=== PATIENT | female | born 1965 | race Caucasian/White ===

== ENCOUNTER → 2024-05-26 12:53 | Outpatient (REF) | payer BC, SELFPAY | LOC: HWRAD 12:53 | PROVIDERS: ATTENDING PHYSICIAN Obstetrics & Gynecology; FAMILY PHYSICIAN Family Medicine | DX: R10.2 Pelvic and perineal pain (principal) | CPT/HCPCS: 76830; 76856 ==

== ENCOUNTER → 2024-09-01 12:36 | Outpatient (REF) | payer BC, SELFPAY | LOC: HWRAD 12:36 | PROVIDERS: ATTENDING PHYSICIAN Nurse Practitioner Adult Health | DX: Z87.891 Personal history of nicotine dependence (principal) | CPT/HCPCS: 71271 ==

== ENCOUNTER 2025-08-05 20:59 | Emergency (ER) | payer BC, SELFPAY ==
[2025-08-05 21:02] VITALS: BP 134/66
[2025-08-05 22:36] VITALS: BMI 35.2
--- NOTE | 2025-08-05 22:53 | ED.GENMED ---
History of Present Illness
General
Chief Complaint: Fall
Source: patient and family
Time Seen by Provider: 08/05/25 22:40
History of Present Illness
History of Present Illness:
60-year-old female with past medical history of hypertension, factor V deficiency presenting to the emergency department with family after she fell down 3 steps striking the back of her head on a concrete surface sustaining laceration to the right
posterior occiput. Patient stated in triage that she believes she lost consciousness, upon further questioning patient states maybe for only a second or so. Patient does take 325 mg of aspirin every other day. Currently endorses a mild headache.
Secondary concern by the family of patient having pneumonia 4 times in the last few months, was started on antibiotics yesterday as well as an antitussive regimen and steroids. Patient has a prescription to obtain a chest x-ray next week. Family
was concerned by the amount of times patient has had pneumonia. Patient stating she does not wish to be worked up for pneumonia and is only here for her head injury.
Past History
Past History
ED Past Medical History: HTN and Other (Factor V deficiency)
ED Past Surgical History: and Other
Social History
Tobacco: Smoker
Alcohol: None
Drug: None
Personal:
Living: with family
Review of Systems
Review of Systems
All Other Systems: ROS reviewed and negative except as documented in HPI and ROS
Phy Exam
Physical Exam
Physical Exam:
GENERAL: Alert , in no apparent distress
HEAD: 1-1/2 cm posterior occiput laceration on the right, bleeding controlled with light pressure
EYE: conjunctiva clear, pupils 4 mm bilateral, EOMI
NECK: Supple, no midline tenderness
ENT: o/p clr, mmm.
NEUROLOGICAL: Alert and oriented
SKIN: Warm and dry, skin intact.
MUSCULOSKELETAL: well perfused.
PSYCH: Normal and appropriate interaction.
Scores
Heart Failure Risk
Heart Failure Risk Score: Not Applicable
Heart Score for Chest Pain Patients
STEMI patient?: Not applicable
Withdrawal Assessment of Alcohol
Withdrawal Assessment Completed?: Not applicable
Course
Orders/Labs/Results
Orders:
Orders
08/05/25 21:[address] [CT Head W/o Iv Contrast] Urgent
Comment:
Reason For Exam: head injury
Vital Signs
Initial and Last Documented VS:
Initial Vital Signs
Temp Pulse Resp BP Pulse Ox
97.5 F 79 16 134/66 95
08/05/25 21:02 08/05/25 21:02 08/05/25 21:02 08/05/25 21:02 08/05/25 21:02
Last Documented Vital Signs
Temp Pulse Resp BP Pulse Ox
97.5 F 79 16 134/66 95
08/05/25 21:02 08/05/25 21:02 08/05/25 21:02 08/05/25 21:02 08/05/25 22:54
Procedures
Laceration Closure
Right Posterior Scalp:
Status of Wound: clean
Size of Wound in cm: 1.5
Description of Wound Edges: sharp
Preparation: cleaned with saline
Revision/Debridement: routine- no revision
Type of Closure: single layer closure
Skin Closure Material: skin haroon
Number of sutures: 4
MDM/Problems Addressed
Differential Diagnosis Includes:
Concussion
Contusion/laceration
Intracranial bleeding
Electrolyte derangement
Pneumonia/infectious etiology causing the weakness
Aspiration
Underlying malignancy given smoking history
MDM/Problems Addressed:
60-year-old female presenting to the emergency department for evaluation after sustaining head injury earlier today and an accidental slip and fall. Laceration repaired as above without difficulty. CT scan ordered. Patient does have a slightly
odd affect, questionable concussion. Offered patient labs and chest x-ray given her pneumonia history however she declines stating that she will go over her chest x-ray next week that she has scheduled.
*Radiology
Radiology exam reviewed: radiology read reviewed
*Pulse Oximetry
SaO2: 95
Oxygen Mode of Delivery: Room air
Patient hypoxic: no
*Critical Care Note
Total Time (30-74mins, 75-104mins- exclusive of procedures): Not Applicable
Patient Management
Escalation/DeEscalation of care consider admission/obs:
CT scan negative for any acute intracranial pathology. Offered to observe patient in the ER given the questionable loss of consciousness combined with slightly odd behavior however patient is requesting be discharged home and family feels
comfortable taking the patient home. I strongly encouraged family to contact the primary care provider tomorrow for follow-up. Staple removal in 5 days. Both patient and family are aware of return precautions.
ED Attending Note
-
Portions of this chart may have been created with voice recognition software.� Occasional wrong word or��sound alike� substitutions may have occurred due to the inherent limitations of voice recognition software.
Discharge Plan
Departure
Patient Disposition: Home (Routine Discharge)
Date of Disposition: 08/05/25
Time of Disposition: 22:57
Patient with high blood pressure during this ER visit?: No
Discharge Problem:
Head injury, Laceration of scalp
Instructions: Concussion, Adult (DC)
Referrals:
Veronica Adams CRNP [Family Provider, General]
Interventions
Interventions:
*Risk Screen - Suicide Last Done: 08/05/25 21:07
*General Assessment Last Done: 08/05/25 22:36
*Neglect/Abuse Screening Last Done: 08/05/25 21:07
*ED- Fall Risk Assessment Last Done: 08/05/25 22:27
*ED COVID-19 Vaccine History Last Done: 08/05/25 22:36
*Nursing Disposition Last Done: 08/05/25 23:09
ED-Musculoskeletal Assessment Last Done: 08/05/25 22:27
ED- Neurological Assessment Last Done: 08/05/25 22:27
ED-Skin Assessment Last Done: 08/05/25 22:27
Discharge Date and Time
Print Language: AFGHAN
== END 2025-08-05 23:10 | disposition home or self-care (01) ==
LOC: EMR 20:59
PROVIDERS: EMERGENCY PHYSICIAN Student in an Organized Health Care Education/Training Program; FAMILY PHYSICIAN Nurse Practitioner Adult Health
DX: S01.01XA Laceration without foreign body of scalp, initial encounter (principal); W10.9XXA Fall (on) (from) unspecified stairs and steps, initial encounter; I10 Essential (primary) hypertension; D68.2 Hereditary deficiency of other clotting factors; F17.200 Nicotine dependence, unspecified, uncomplicated
CPT/HCPCS: 12001; 99284; 70450